=== PATIENT | female | born 2005 | race Caucasian/White ===

== ENCOUNTER 2024-04-21 10:02 | Outpatient (CLI) | payer BC, SELFPAY ==
--- NOTE | ~2024-04-21 | US_ITS ---
US arterial ankle brachial ind INDICATION: Peripheral vascular disease TECHNIQUE: Segmental pressures and plethysmographic and Doppler waveforms of the brachial and lower e xtremity arteries were obtained. COMPARISON: None. FINDINGS: Right and left brachial artery pressures of 106 mm Hg and 112 mm Hg, respectively, are concordant (no rmal difference <= 30 mmHg). The right ankle-brachial index (RAKEL) is 1.09 (normal >= 0.9-1.0). The right great toe-brachial index (TBI) is 0.57 (normal >= 0.60). The left RAKEL is 1.07. The left TBI is 0.65. IMPRESSION: 1. Normal bilateral ankle-brachial indices. Mildly decreased right toe brachial index. Reviewed, dictated and finalized at location B.
== END 2024-04-21 10:03 | disposition home or self-care (01) ==
PROVIDERS: PCP Family Medicine; Visit Provider Nurse Practitioner
DX: I73.9 Peripheral vascular disease, unspecified (principal)
CPT/HCPCS: 93922